=== PATIENT | female | born 1950 | race Two or more races ===

== ENCOUNTER 2017-09-11 15:04 | Emergency (ER) | payer OTHER ==
[2017-09-11 15:14] VITALS: BMI 27.6
--- NOTE | 2017-09-11 15:40 | PDOC ---
History of Present Illness - General Chief Complaint: Pain Stated Complaint: ABD DISCOMFORT Time Seen by Provider: 09/11/17 15:35 - History of Present Illness Initial Comments: 09/11/17 16:39 67F with pmh of chronic back pain and opiates addiction on methadone presents with 3-week long epigastric qualified as 6/10 and burning, constant, unchanged by eating or positioning. Tried taking Zantac a few days ago but didn't improve the pain. Saw PCP who took an abdominal xray but patient didn't want to wait for the results. Denies reflux, vomiting, constipation. 09/11/17 16:47 Past History - Past Medical History Allergies/Adverse Reactions: Allergies Allergy/AdvReac Type Severity Reaction Status Date / Time No Known Allergies Allergy Verified 09/11/17 15:15 Home Medications: Ambulatory Orders Albuterol Sulfate [Proair Hfa -] 1 - 2 inh PO TID 08/24/14 Diclofenac Sodium [Voltaren] 300 gm TP TID PRN 08/24/14 Methadone [Dolophine -] 60 mg PO DAILY 08/24/14 Omeprazole [Prilosec] 20 mg PO DAILY PRN 08/24/14 Vitamin B Complex 1 each PO DAILY 08/24/14 Buspirone HCl [Buspar -] 10 mg PO TID 04/09/17 Cholecalciferol (Vitamin D3) [Vitamin D3] 50,000 unit PO MOFR 04/09/17 Citalopram Hydrobromide [Celexa -] 20 mg PO DAILY 04/09/17 Risperidone [Risperdal] 1 mg PO BID 04/09/17 Docusate Sodium [Colace -] 100 mg PO TID PRN 07/07/17 Oxycodone HCl/Acetaminophen [Endocet 7.5-325 mg Tablet] 1 each PO TID PRN #90 tablet MDD 3 09/09/17 Sennosides [Senna -] 1 tab PO BID 09/09/17 Anemia: No Asthma: Yes Cancer: No Cardiac Disorders: No CVA: No COPD: No CHF: No Dementia: No Diabetes: No GI Disorders: No Disorders: No HTN: No Hypercholesterolemia: No Liver Disease: No Seizures: No Thyroid Disease: No - Surgical History Abdominal Surgery: Yes (UMBILICAL HERNIA) Appendectomy: No Cardiac Surgery: No Cholecystectomy: Yes Lung Surgery: No Neurologic Surgery: Yes (LAMINECTOMY 07/2009) Orthopedic Surgery: Yes (laminectomy 2008) - Immunization History Immunization Up to Date: Yes - Suicide/Smoking/Psychosocial Hx Smoking Status: Yes Smoking History: Current every day smoker Have you smoked in the past 12 months: Yes Number of Cigarettes Smoked Daily: 15 Information on smoking cessation initiated: No 'Breaking Loose' booklet given: 01/29/16 Hx Alcohol Use: No Drug/Substance Use Hx: No Substance Use Type: Opiates Hx Substance Use Treatment: Yes (detox,[facility]) Review of Systems - Review of Systems Constitutional: No: Chills, Diaphoresis, Fever, Loss of Appetite, Night Sweats HEENTM: No: Symptoms Reported Respiratory: No: Symptoms reported Cardiac (ROS): No: Symptoms Reported ABD/GI: No: Constipated, Diarrhea, Difficulty Swallowing, Nausea, Poor Appetite , Indigestion : No: Symptoms Reported Endocrine: No: Symptoms Reported *Physical Exam - Vital Signs Last Vital Signs Temp Pulse Resp BP Pulse Ox 98.2 F 97 H 17 144/92 97 09/11/17 15:10 09/11/17 15:10 09/11/17 15:10 09/11/17 15:10 09/11/17 15:10 - Physical Exam General Appearance: Yes: Nourished, Appropriately Dressed. No: Apparent Distress HEENT: positive: EOMI, MELISSA Neck: positive: Trachea midline. negative: Tender Respiratory/Chest: positive: Lungs Clear, Normal Breath Sounds. negative: Chest Tender, Respiratory Distress Cardiovascular: positive: Regular Rhythm, Regular Rate, S1, S2 Vascular Pulses: Dorsalis-Pedis (R): 2+, Doralis-Pedis (L): 2+ Gastrointestinal/Abdominal: positive: Normal Bowel Sounds, Protuberent, Hernia ( possible abdominal hernia). negative: Tender, Guarding, Rebound Extremity: positive: Normal Capillary Refill, Normal Inspection ED Treatment Course - LABORATORY CBC & Chemistry Diagram: 09/11/17 16:45 09/11/17 16:45 Medical Decision Making - Medical Decision Making 09/11/17 19:05 67F with pmh of opiate addiction presents with epigastric pain for the past 3 weeks. Pain unchanged through that time Gastritis vs peptic ulcer vs GERD vs DE vs pancreatitis vs gastroparesis. Abdominal and aortic US negative, All labs negative Patient feels better Continue PPi treatment and follow up outpatient 09/11/17 19:12 *DC/Admit/Observation/Transfer Diagnosis at time of Disposition: Gastritis - Discharge Dispostion Admit: No - Referrals Referrals: Brando Thomas MD [Staff Physician] - - Patient Instructions Printed Discharge Instructions: DI for Gastritis Additional Instructions: Follow up with Dr. Thomas , [facility]
--- NOTE | 2017-09-11 16:24 | PDOC ---
Attending Attestation - Resident Resident Name: SergioSantos - ED Attending Attestation I have performed the following: I have examined & evaluated the patient, The case was reviewed & discussed with the resident, I agree w/resident's findings & plan, Exceptions are as noted - HPI HPI: 09/11/17 16:32 67 F with h/o chronic lower back pain s/p laminectomy, opiate dependency on methadone, presenting to ER with 3 weeks of epigastric pain. Pt reports constant , non-radiating pain in the middle of her upper abdomen. Pain is not associated with eating. Pt denies N/V/D/constipation. Denies any prior surgical history. Pt denies F/C. Denies CP/SOB. - Physicial Exam PE: 09/11/17 16:34 "GENERAL: Awake, alert, and fully oriented, in no acute distress HEAD: No signs of trauma EYES: PERRLA, EOMI, sclera anicteric, conjunctiva clear ENT: Auricles normal inspection, hearing grossly normal, nares patent, oropharynx clear without exudates. Moist mucosa NECK: Nontender, no stepoffs, Normal ROM, supple, no lymphadenopathy, JVD, or masses LUNGS: Breath sounds equal, clear to auscultation bilaterally. No wheezes, and no crackles HEART: Regular rate and rhythm, normal S1 and S2, no murmurs, rubs or gallops ABDOMEN: Soft, nontender, normoactive bowel sounds. No guarding, no rebound. No masses EXTREMITIES: Normal range of motion, no edema. No clubbing or cyanosis. No cords, erythema, or tenderness NEUROLOGICAL: Cranial nerves II through XII intact. 5/5 strength and sensation in all extremities, Normal speech, normal gait SKIN: Warm, Dry, normal turgor, no rashes or lesions noted. " - Medical Decision Making 09/11/17 16:36 67 F with epigastric pain x 3 weeks. Possible gastritis. Pt non-toxic appearing with benign abdomen. Will obtain lactate to r/o mesenteric ischemia. Lipase to r /o pancreatitis. US to r/o AAA and acute heather. Pain is very atypical for ACS, but will r/o with EKG and trop (single trop given pt has had symptoms for 3 weeks). - Labs - EKG, trop - US 09/11/17 18:41 Labs and US unremarkable. Pt reports sympomatic improvement. Abdominal exam continues to be benign. Pt well appearing, clinically stable for discharge.
[2017-09-11 17:02] LABS: BASOPHIL 0.2 % (0-2.0); EOSINOPHIL 1.5 % (0-4.5); MCH 30.9 pg (25.7-33.7); MEAN CELL VOLUME 93.6 fl (80-96); NEUTROPHILS 48.2 % (42.8-82.8); PLATELET COUNT 172 K/MM3 (134-434); RDW 15.4 % (11.6-15.6); WHITE BLOOD COUNT 7.4 K/mm3 (4.0-10.0)
[2017-09-11 17:20] LABS: ALBUMIN 3.5 g/dl (3.4-5.0); ANION GAP 6 (8-16); CALCIUM 9.3 mg/dL (8.5-10.1); CO2 31 mmol/L (21-32); GLUCOSE,RANDOM 83 mg/dL (74-106); SGOT/AST 19 U/L (15-37); SGPT/ALT 24 U/L (12-78)
[2017-09-11 17:23] LABS: ALK PHOS 98 U/L (45-117); BILIRUBIN,TOTAL 0.2 mg/dL (0.2-1.0); CPK 106 IU/L (26-192); CREATININE 1.1 mg/dL (0.55-1.02); TOT PROT 7.7 g/dl (6.4-8.2); TROPONIN I < 0.02 ng/ml (0.00-0.05)
[2017-09-11 19:39] VITALS: BP 133/82; PULSE 86; TEMP 98.5
--- NOTE | 2017-09-12 09:09 | EKG ---
Test Reason : Blood Pressure : / mmHG Vent. Rate : 081 BPM Atrial Rate : 081 BPM P-R Int : 130 ms QRS Dur : 086 ms QT Int : 412 ms P-R-T Axes : 073 002 027 degrees QTc Int : 478 ms POOR DATA QUALITY, INTERPRETATION MAY BE ADVERSELY AFFECTED NORMAL SINUS RHYTHM POSSIBLE LEFT ATRIAL ENLARGEMENT NONSPECIFIC ST AND T WAVE ABNORMALITY ABNORMAL ECG WHEN COMPARED WITH ECG OF 31-DEC-2010 17:45, QT HAS LENGTHENED Confirmed by HEMAL HUTCHINSON MD ([id number]) on 09/12/2017 9:09:13 AM Referred By: Confirmed By:HEMAL HUTCHINSON MD
== END 2017-09-11 19:41 | disposition home or self-care (01) ==
LOC: JER 15:04
DX: K29.70 Gastritis, unspecified, without bleeding (principal); F11.20 Opioid dependence, uncomplicated; F17.210 Nicotine dependence, cigarettes, uncomplicated; J45.909 Unspecified asthma, uncomplicated; M54.5 Low back pain; G89.29 Other chronic pain
CPT/HCPCS: 36415; 76700-TC; 76775-TC; 80053; 82550; 83605; 83690; 84484; 85025; 93005; 93010; 99282-25

== ENCOUNTER 2021-05-16 05:27 | Emergency (ER) | payer OTHER ==
[2021-05-16 05:51] VITALS: BMI 29.5
[2021-05-16] MEDS ORDERED: SODIUM CHLORIDE 500 ML IV STA (07:39)
[2021-05-16 08:34] LABS: BASO % 0.9 % (0-2.0); EOS % 0.2 % (0-4.5); HEMATOCRIT 40.4 % (32.4-45.2); HEMOGLOBIN 13.2 GM/dL (10.7-15.3); LYMPH % 19.7 % (8-40); MCH 30.2 pg (25.7-33.7); MCHC 32.6 g/dl (32.0-36.0); MEAN CELL VOLUME 92.7 fl (80-96); MEAN PLT VOLUME 7.6 fl (7.5-11.1); MONO % 2.5 % (3.8-10.2); NEUT % 76.7 % (42.8-82.8); PLATELET COUNT 190 10^3/uL (134-434); RBC 4.36 M/mm3 (3.60-5.2); RDW 15.5 % (11.6-15.6); WHITE BLOOD COUNT 7.3 K/mm3 (4.0-10.0)
[2021-05-16 08:39] LABS: EPI CELLS 1 /uL (0-25.1); HYALINE CASTS 0 /uL (0-3.1); URINE APPEARANCE CLEAR; URINE BACTERIA 6 /uL (0-1359); URINE BILIRUBIN NEGATIVE (NEGATIVE); URINE COLOR YELLOW; URINE GLUCOSE (UA) NEGATIVE (NEGATIVE); URINE KETONE NEGATIVE (NEGATIVE); URINE LEUK ESTERASE NEGATIVE (NEGATIVE); URINE NITRITE NEGATIVE (NEGATIVE); URINE PROTEIN NEGATIVE (NEGATIVE); URINE RBC 5 /uL (0-23.9); URINE UROBILINOGEN 0.2 mg/dL (0.2-1.0); URINE WBC 0 /uL (0-25.8)
[2021-05-16 08:40] LABS: INR 0.91 (0.83-1.09); PROTHROMBIN TIME (PATIENT) 11.1 SEC (9.7-13.0)
[2021-05-16 08:51] LABS: CHLORIDE 103 mmol/L (98-107); SODIUM 139 mmol/L (136-145)
[2021-05-16 08:54] LABS: ANION GAP 3 MMOL/L (8-16); BLOOD UREA NITROGEN 12.9 mg/dL (7-18); CO2 32 mmol/L (21-32); GLUCOSE,RANDOM 141 mg/dL (74-106); MAGNESIUM 2.2 mg/dL (1.8-2.4)
[2021-05-16 08:57] LABS: CREATININE 0.9 mg/dL (0.55-1.3); SGOT/AST 26 U/L (15-37); SGPT/ALT 27 U/L (13-61)
[2021-05-16 08:59] LABS: BILIRUBIN,TOTAL 0.4 mg/dL (0.2-1); TOT PROT 7.9 g/dl (6.4-8.2)
[2021-05-16 09:00] LABS: ALK PHOS 75 U/L (45-117)
[2021-05-16] MEDS ORDERED: ACETAMINOPHEN WITH CODEINE 300MG/30MG TABLET PO ONE (09:05)
[2021-05-16] MEDS ORDERED: ACETAMINOPHEN WITH CODEINE 300MG/30MG TABLET ONE (09:52)
[2021-05-16 09:59] VITALS: BP 125/64; PULSE 88; TEMP 98.7
== END 2021-05-16 10:57 | disposition home or self-care (01) ==
LOC: JER 05:27
PROC: 3E0337Z Introduction of Electrolytic and Water Balance Substance into Peripheral Vein, Percutaneous Approach (ICD-10-PCS; principal; 2021-05-16)
DX: R53.1 Weakness (principal); M25.561 Pain in right knee
CPT/HCPCS: 36415; 71046-TC-FY; 80053; 81003; 82550; 83735; 84484; 85025; 85610; 93005; 93010; 99285-25